=== PATIENT | female | born 1940 | race Caucasian/White ===

== ENCOUNTER 2023-08-09 10:28 | Outpatient (CLI) | payer MEDICARE, SELFPAY ==
--- NOTE | ~2023-08-09 | MR_ITS ---
EXAMINATION: MR thoracic spine wo con DATE: 08/09/2023 11:15 INDICATION: Low back pain. Lumbar spondylosis. TECHNIQUE: Magnetic resonance imaging (MRI) of the thoracic spine was performed without intravenous c ontrast. Sagittal localizer T1-weighted FSE of the cervical spine was obtained. Thoracic spine sequen arron included sagittal T2-weighted FSE, sagittal T1-weighted FSE, sagittal T2-weighted FS FSE, and axi al T2-weighted FSE. COMPARISON: None. FINDINGS: There is 5 degrees levocurvature of thoracic spine. Vertebral body heights are normal. 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 There is a chronic burst fracture of T9 with changes of vertebroplasty. There is a burst fracture of T12 with changes of vertebroplast y and retropulsion of bone 3 mm into central spinal canal. Intervertebral disc heights are normal. At T7-T8, the disc is bulging with mild central canal stenosis. At T8-T9, T9-T10, and T10-T11, the disc s are bulging with mild central canal stenosis. 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 There is mild neural foraminal stenosis at multiple levels bilaterally. At T9-T10, there is moderate bilateral neural foraminal stenosis. The spinal cord signal intensity is n ormal. The conus medullaris is at L1. IMPRESSION: 1. Mild thoracic spondylosis. Reviewed, dictated and finalized at location E.
== END 2023-08-09 10:29 | disposition home or self-care (01) ==
LOC: CHSIMG 10:32
PROVIDERS: PCP Nurse Practitioner; Visit Provider Nurse Practitioner
DX: M43.06 Spondylolysis, lumbar region (principal); M43.04 Spondylolysis, thoracic region
CPT/HCPCS: 72146